=== PATIENT | male | born 2000 | race African-American/Black ===

== ENCOUNTER 2022-02-17 10:39 | Emergency (ER) | payer MEDICAID ==
[~2022-02-17] VITALS: Ht 185.4 cm; Wt 148.0 kg
[2022-02-17 10:41] VITALS: BP 143/94
[2022-02-17] MEDS ORDERED: ONDANSETRON HCL 4MG/2ML INJ IV STA (11:17)
[2022-02-17] MEDS ORDERED: SODIUM CHLORIDE 0.9% 1,000 ML IV ONE (11:30)
[2022-02-17 11:59] LABS: BASOPHILS % 0.1 % (0.0-2.0); EOSINOPHILS % 4.1 % (0.0-5.0); HEMATOCRIT. 50.8 % (42.0-52.0); HEMOGLOBIN. 16.6 g/dL (14.0-18.0); LYMPHOCYTES % 17.8 % (20.0-50.0); MEAN CORPUSCULAR HEMOGLOBIN 24.6 pg (28.0-32.0); MEAN CORPUSCULAR VOLUME 75.4 fL (80.0-94.0); MEAN PLATELET VOLUME 8.2 fl (7.4-10.4); MONOCYTES % 6.8 % (2.0-8.0); NEUTROPHILS % 71.2 % (40.0-76.0); PLATELET 352 x1000/uL (130-400); RED BLOOD CELL COUNT 6.74 mill/uL (4.7-6.1); RED CELL DISTRIBUTION WIDTH 14.7 % (11.6-14.6)
[2022-02-17 12:02] LABS: CHLORIDE 107 mEq/L (98-107)
[2022-02-17] MEDS ORDERED: ONDA4TAB5 MT (12:47)
== END 2022-02-17 13:37 | disposition home or self-care (01) ==
LOC: ER 10:39
DX: R11.2 Nausea with vomiting, unspecified (principal); R19.7 Diarrhea, unspecified
CPT/HCPCS: 36415; 80053; 83690; 84484; 85025; 96361; 96374; 99283; J2405; J7030